=== PATIENT | female | born 1960 | race American Indian/Alaskan Native ===

== ENCOUNTER 2017-12-04 10:21 | Emergency (ER) | payer OTHER ==
[2017-12-04] MEDS ORDERED: LIDOCAINE VISCOUS 2% PO ONE ×2 (11:30→16:47)
[2017-12-04] MEDS ORDERED: SUBLIMAZE IV ONE (11:31)
[2017-12-04] MEDS ORDERED: PROTONIX IV ONE ×2 (11:31→11:37)
[2017-12-04] MEDS ORDERED: LIDOCAINE VISCOUS 2% ONE (11:37)
[2017-12-04] MEDS ORDERED: SUBLIMAZE ONE (11:39)
[2017-12-04] MEDS: NACL 0.9% 1000 ML 1,000 ML IV ONE ×2 (11:50→12:17)
[2017-12-04 11:51] LABS: Basophils # (Auto) 0.1 K/mm3 (0.0-0.1); Basophils % (Auto) 0.7 % (0.0-1.8); Eosinophils # (Auto) 0.1 K/mm3 (0.0-0.4); Eosinophils % (Auto) 0.7 % (0.0-4.3); Hematocrit 23.8 % (30.3-42.9); Hemoglobin 7.9 gm/dl (10.1-14.3); Lymphocytes # (Auto) 1.8 K/mm3 (1.2-5.4); Lymphocytes % (Auto) 24.5 % (13.4-35.0); Mean Corpuscular HGB Conc 33 % (30-34); Mean Corpuscular Hemoglobin 29 pg (28-32); Mean Corpuscular Volume 87 fl (79-97); Monocytes # (Auto) 0.7 K/mm3 (0.0-0.8); Monocytes % (Auto) 9.8 % (0.0-7.3); Platelet Count 267 K/mm3 (140-440); Red Blood Count 2.74 M/mm3 (3.65-5.03); Red Cell Distribution Width 14.5 % (13.2-15.2)
[2017-12-04 12:07] LABS: Alanine Aminotransferase 12 units/L (7-56); Albumin 3.4 g/dL (3.9-5); BUN/Creatinine Ratio 14; Blood Urea Nitrogen 7 mg/dL (7-17); Calcium 8.7 mg/dL (8.4-10.2); Hemolysis Index 0
[2017-12-04 12:46] LABS: Bilirubin,Urine NEG (Negative); Blood,Urine NEG (Negative); Color,Urine Yellow (Yellow); Mucus,Urine FEW /HPF; Protein,Urine <15 mg/dL mg/dL (Negative); Urobilinogen,Urine < 2.0 mg/dL (<2.0)
[2017-12-04] MEDS ORDERED: ZOFRAN ONE (13:51)
--- NOTE | 2017-12-04 13:53 | Cat Scan Report ---
CT ABDOMEN AND PELVIS WITH CONTRAST: 12/04/17 13:17 CLINICAL: Abdominal pain and difficulty swallowing. A gastric sleeve procedure was performed several days ago. COMPARISON: None. TECHNIQUE: Volumetric acquisition and 1.25 millimeter scan reconstructions after the uneventful intravenous injection of 100 cc Omnipaque 300. Consent was obtained prior to the administration of contrast. Water soluble contrast was also given. FINDINGS: Abdomen: Mild bibasal subsegmental atelectasis. The distal esophagus is normal. Normal appearance of the postop stomach and no leakage of oral contrast from the anastomosis. There is oral contrast throughout the small bowel and throughout the colon to the rectum. Diverticulosis throughout the colon but no signs of diverticulitis. An appendix is not identified. No pneumoperitoneum, hemoperitoneum or ascites. Mild edema and subcutaneous air of the anterior abdominal wall and panniculus. No fluid collections of the abdominal wall. Normal liver, bile ducts and gallbladder. Normal pancreas and spleen. Normal adrenal glands and kidneys. The renal collecting systems and ureters are nondilated. Normal aorta and inferior vena cava. Normal aorta and inferior vena cava. Pelvis: Absence of the uterus and normal vaginal cuff. Normal urinary bladder and rectum. Normal sigmoid colon. No pelvic mass mass or fluid. Bone windows demonstrate no suspicious bone lesion. Status post posterior lumbar fusion at L4-5. IMPRESSION:1. Status post gastric sleeve procedure with an intact anastomosis and no leak. 2. No esophageal or gastric obstruction. 3. Postop inflammatory changes in the anterior abdominal wall and panniculus. The presence of moderate air raises the possibility of gas producing infection. However, no abscess. 4. Normal pelvis status post hysterectomy. 5. Status post appendectomy. 6. Diverticulosis but no signs of diverticulitis.
[2017-12-04] MEDS ORDERED: ZOFRAN IV ONE (13:56)
[2017-12-04] MEDS ORDERED: NACL 0.9% 1000 ML 1,000 ML IV ONE (15:19)
[2017-12-04 15:25] VITALS: BP 110/55
--- NOTE | 2017-12-04 16:36 | Emergency Department Report ---
HPI - General Chief Complaint: Nausea/Vomiting/Diarrhea Time Seen by Provider: 12/04/17 11:13 - HPI HPI: The patient is a 57-year-old female 3 days status post gastric sleeve placement by Dr. Greg Mosquera, who presents for evaluation of throat pain and upper belly pain since her surgery. She reports burning in quality throat pain and upper abdominal pain, moderate in severity, exacerbated with eating or drinking. She also complains of constant nausea without vomiting, also for the past 2 days. She shares that she awoke today with the sensation of severe dyspnea, transient and self resolving. The patient denies fever, chills, night sweats, chest pain, hematemesis, hemoptysis, cough, diarrhea, blood in the stool, dark tarry stool, dysuria, hematuria, flank pain, genital discharge, inability to pass flatus. ED Past Medical Hx - Past Medical History Previous Medical History?: Yes - Surgical History Past Surgical History?: Yes Additional Surgical History: BACK/ KNEE/ CARPEL TUNNEL/ C SECTION/ HYSTO - Social History Smoking Status: Never Smoker Substance Use Type: None - Medications Home Medications: Home Medications Medication Instructions Recorded Confirmed Last Taken Type Omeprazole Magnesium [PriLOSEC Otc] 20 mg PO QDAY #14 tablet. 12/04/17 Unknown Rx Ondansetron [Zofran TAB] 4 mg PO Q8HR PRN #20 tablet 12/04/17 Unknown Rx ED Review of Systems ROS: Stated complaint: SHORTNESS OF BREATH Other details as noted in HPI Constitutional: denies: fever ENT: denies: throat or neck pain Respiratory: denies: cough, shortness of breath Cardiovascular: denies: chest pain Endocrine: denies unexplained weight loss or gain Gastrointestinal: denies: abdominal pain, nausea Genitourinary: denies: dysuria Musculoskeletal: denies: leg swelling Skin: denies: rash Neurological: denies: headache Hematological/Lymphatic: denies: easy bleeding or easy bruising Psych: denies sadness or hopelessness Physical Exam - Physical Exam Vital Signs: Vital Signs 12/04/17 12/04/17 12/04/17 11:00 11:10 11:56 Temperature 97.7 F Pulse Rate 88 77 Respiratory 18 Rate Blood Pressure 90/49 Blood Pressure 110/70 [Left] O2 Sat by Pulse 100 100 Oximetry 12/04/17 12/04/17 13:44 15:25 Temperature Pulse Rate 81 77 Respiratory 16 16 Rate Blood Pressure Blood Pressure 105/49 110/55 [Left] O2 Sat by Pulse 96 100 Oximetry Physical Exam: General: well-nourished, well-developed, no acute distress Head: Normocephalic, atraumatic Eyes: normal sclera ENT: Mucous membranes are pink and moist Neck: trachea midline, neck supple, No neck stiffness, no cervical adenopathy Respiratory: Breath sounds equal bilaterally, no wheezing, rales, or rhonchi Cardio: S1 and S2 present, no murmurs, rubs, gallops, capillary refill is brisk Abdomen: Normoactive bowel sounds, soft abdomen, no rigidity, no guarding or rebound tenderness Chest WALL/Back: No tenderness to palpation of the chest wall, no CVA tenderness with percussion Musc: No pitting edema Skin: No rash Neuro: no facial drooping, normal speech Psych: Normal affect ED Course Vital Signs 12/04/17 12/04/17 12/04/17 11:00 11:10 11:56 Temperature 97.7 F Pulse Rate 88 77 Respiratory 18 Rate Blood Pressure 90/49 Blood Pressure 110/70 [Left] O2 Sat by Pulse 100 100 Oximetry 12/04/17 12/04/17 13:44 15:25 Temperature Pulse Rate 81 77 Respiratory 16 16 Rate Blood Pressure Blood Pressure 105/49 110/55 [Left] O2 Sat by Pulse 96 100 Oximetry ED Medical Decision Making - Lab Data Result diagrams: 12/04/17 11:33 12/04/17 11:33 - Medical Decision Making The patient was seen and examined by myself. The patient is placed on a cardiac technologist and continuous pulse ox. On initial evaluation, the patient was found to be in no distress. Evaluation orders are placed. IV access is established and the patient is given 1 L normal saline fluid bolus and Zofran for nausea, and IV analgesic for pain. Lab results were non-concerning including WBC, hemoglobin, hematocrit, electrolytes, renal function, LFTs, lipase, and urinalysis. CT scan the abdomen pelvis reveals intact distal esophageal anastomosis, normal postoperative changes, and negative bowel obstruction. CT scan of the abdomen and pelvis revealed some mild anterior abdominal wall edema, and was negative for bowel obstruction or intra-abdominal infection.. The patient's general surgeon Dr. Thomson was contacted. He stated that anterior abdominal wall findings were normal postop changes. He discussed all the patient's evaluation findings. He submitted that the patient is stable for discharge and outpatient follow-up. He agreed to admit the patient in the morning for reevaluation at his office. The patient was informed's recommendation she agreed. The patient is discharged in stable condition. Critical care attestation.: If time is entered above; I have spent that time in minutes in the direct care of this critically ill patient, excluding procedure time. ED Disposition Clinical Impression: Abdominal pain, acute, epigastric, Nausea in adult patient, Throat pain in adult Disposition: DC-01 TO HOME OR SELFCARE Is pt being admited?: No Does the pt Need Aspirin: No Condition: Stable Instructions: Gastroesophageal Reflux Disease (ED), Acute Abdominal Pain (ED) Prescriptions: Omeprazole Magnesium [PriLOSEC Otc] 20 mg PO QDAY #14 tablet. Ondansetron [Zofran TAB] 4 mg PO Q8HR PRN #20 tablet PRN Reason: Nausea Referrals: GREG MOSQUERA MD [Staff Physician] - 24 Hours Time of Disposition: 17:17
[2017-12-04] MEDS ORDERED: ALUM-MAG HYDROX-SIMETH 200-200-20MG/5ML PO ONE (16:47)
[2017-12-04 17:28] LABS: Partial Thromboplastin Time 21.3 Sec. (24.2-36.6)
== END 2017-12-04 17:30 | disposition home or self-care (01) ==
LOC: ED 10:21
DX: R10.13 Epigastric pain (principal); R07.0 Pain in throat; R11.0 Nausea; Z88.5 Allergy status to narcotic agent; Z91.040 Latex allergy status; Z88.6 Allergy status to analgesic agent
CPT/HCPCS: 36415; 74177; 80053; 81001; 82140; 82550; 82803; 83690; 83880; 85025; 85610; 85730; 93005; 93010; 96374; 96375; 99285; C9113; J2405; J3010; Q9967